=== PATIENT | male | born 1985 | race Caucasian/White ===

== ENCOUNTER 2020-07-02 15:47 | Emergency (ER) | payer SELFPAY ==
[2020-07-02] MEDS ORDERED: Sodium Chloride 0.9% 10 ML Syringe FLUSH PRN (15:55)
--- NOTE | 2020-07-02 18:29 | EDM.PDOC ---
ED HPI GENERAL MEDICAL PROBLEM - General Chief Complaint: General Stated Complaint: co poisoning Time Seen by Provider: 07/02/20 16:00 - History of Present Illness INITIAL COMMENTS - FREE TEXT/NARRATIVE: 34 year old male brought by ambulance due to CO poisoning The family was at fish home with propane heater on -they went to fish home at 9 o clock & one child awoke at one clock & start through up at one o clock -they continue to do fishing-In the morning ,he felt little dizzy & c/o headache -start through up-He tried to call the hospital but there were no signal -he was not able contact the hospital -he pull the family out - On the way ,he was in & out .He was c/o headache ,dull ache ,6/10 -non radiating denies fever ,chest pain ,cough ,wheezing or abd pain Onset: Today, Sudden Onset Date: 07/02/20 Onset Time: 14:35 Duration: Hour(s): (6) Quality: Reports: Sharp Severity: Severe Improves with: Reports: None Worsens with: Reports: None Associated Symptoms: Reports: Confusion, Syncope (patient was in & out during the way ) Social & Family History - Tobacco Use Tobacco Use Status *Q: Light Tobacco User ED ROS GENERAL - Review of Systems Review Of Systems: See Below Constitutional: Reports: Fatigue HEENT: Reports: Other (dizzines) Respiratory: Reports: Shortness of Breath, Wheezing, Cough, Sputum Cardiovascular: Reports: No Symptoms, Chest Pain, Lightheadedness GI/Abdominal: Reports: Nausea, Vomiting, Other Musculoskeletal: Reports: Muscle Stiffness Skin: Reports: No Symptoms Neurological: Reports: Confusion, Dizziness, Headache, Seizure, Syncope, Difficulty Walking Psychiatric: Reports: Confusion ED EXAM, GENERAL - Physical Exam Exam: See Below Exam Limited By: No Limitations General Appearance: WD/WN, No Apparent Distress, Anxious, Lethargic Nose: Normal Inspection Throat/Mouth: Other (ruth red lips ) Head: Atraumatic, Normocephalic Neck: Supple, Non-Tender, Full Range of Motion Respiratory/Chest: No Respiratory Distress, Lungs Clear, Normal Breath Sounds, No Accessory Muscle Use, Chest Non-Tender Cardiovascular: Normal Peripheral Pulses, Regular Rate, Rhythm, No Edema, No Gallop, No JVD, No Murmur, No Rub GI/Abdominal: Normal Bowel Sounds, Soft, Non-Tender, No Organomegaly, No Distention, No Abnormal Bruit, No Mass, Pelvis Stable Neurological: CN II-XII Intact (confused on arrival ) Course - Vital Signs Text/Narrative:: 34 year old male came with CO poisoning O2 started with nonrebreather mask at rate of 15/liter per minute I/v line established EKG done -that shows no acute ST or T wave changes CO level at the site was 27 % lab work ABG ,CBC ,CMP lactic acid .co level order ABG PH = 7.51 pO 293 cO28 lactic acid 1.5 After consulting [place] provider , decision is made to tranfer for hyperbaric therapy I [facility] with [facility] ,they do not have hyperbaric therapy . They give [facility] number -I spoke with dr lopez regarding the patient .He was ready to take him Patients vitals were stable before transfer Dispositions- transfer to [facility] by ambulance - Orders/Labs/Meds Orders: Active Orders 24 hr Category Date Time Status Peripheral IV Insertion Adult [OM.PC] Routine Oth 07/02/20 15:55 Ordered Labs: Laboratory Tests 07/02/20 07/02/20 07/02/20 Range/Units 15:58 16:15 16:15 WBC 10.2 (4.0-11.0) K/uL RBC 4.84 (4.50-6.50) M/uL Hgb 14.2 (13.0-18.0) g/dL Hct 41.0 (40.0-54.0) % MCV 85 (76-96) fL MCH 29.3 (27.0-32.0) pg MCHC 34.6 (31.0-35.0) g/dL RDW 13.2 (11.0-16.0) % Plt Count 206 (150-400) K/uL MPV 10.0 (6.0-10.0) fL Neut % (Auto) 84.5 H (45.0-70.0) % Lymph % (Auto) 9.1 L (20.0-40.0) % Cassia % (Auto) 5.3 (3.0-10.0) % Eos % (Auto) 0.9 L (1.0-5.0) % Baso % (Auto) 0.2 (0.0-0.5) % Neut # (Auto) 8.58 H (2.00-7.50) K/uL Lymph # (Auto) 0.92 L (1.50-4.00) K/uL Cassia # (Auto) 0.54 (0.20-0.80) K/uL Eos # (Auto) 0.09 (0.04-0.40) K/uL Baso # (Auto) 0.02 (0.02-0.10) K/uL ABG pH (7.35-7.45) ABG pCO2 (35-45) mmHg ABG pO2 (80-105) mmHg ABG HCO3 (22-26) mmol/L ABG O2 Saturation (95-98) % ABG Base Excess (-2-2) Tres Test POC Cap COHB HHb Janie > 35.0 H* (0.5-1.5) %COHb O2 Delivery Device Sodium 144 (136-145) mmol/L Potassium 3.8 (3.5-5.1) mmol/L Chloride 107 (98-107) mmol/L Carbon Dioxide 25.7 (21.0-32.0) mmol/L Anion Gap 15.1 H (5.0-15.0) mmol/L BUN 18 (8-26) mg/dL Creatinine 1.28 (0.70-1.30) mg/dL Est Cr Clr Drug Dosing TNP Estimated GFR (MDRD) > 60 (>60) MLS/MIN BUN/Creatinine Ratio 14.1 (6-25) Glucose 80 (74-100) mg/dL Lactic Acid (0.4-2.0) mmol/L Calcium 9.1 (8.5-10.1) mg/dL Total Bilirubin 0.6 (0.0-1.0) mg/dL AST 22 (15-37) U/L ALT 35 (12-78) U/L Alkaline Phosphatase 70 (46-116) U/L Total Protein 7.5 (6.4-8.2) g/dL Albumin 4.4 (3.4-5.0) g/dL Globulin 3.1 (2.2-4.2) g/dL Albumin/Globulin Ratio 1.4 (0.8-2.0) SARS-CoV-2 RNA (KRISTI) (NEGATIVE) 07/02/20 07/02/20 07/02/20 Range/Units 16:15 16:15 18:05 WBC (4.0-11.0) K/uL RBC (4.50-6.50) M/uL Hgb (13.0-18.0) g/dL Hct (40.0-54.0) % MCV (76-96) fL MCH (27.0-32.0) pg MCHC (31.0-35.0) g/dL RDW (11.0-16.0) % Plt Count (150-400) K/uL MPV (6.0-10.0) fL Neut % (Auto) (45.0-70.0) % Lymph % (Auto) (20.0-40.0) % Cassia % (Auto) (3.0-10.0) % Eos % (Auto) (1.0-5.0) % Baso % (Auto) (0.0-0.5) % Neut # (Auto) (2.00-7.50) K/uL Lymph # (Auto) (1.50-4.00) K/uL Cassia # (Auto) (0.20-0.80) K/uL Eos # (Auto) (0.04-0.40) K/uL Baso # (Auto) (0.02-0.10) K/uL ABG pH 7.51 H* (7.35-7.45) ABG pCO2 28.5 L (35-45) mmHg ABG pO2 293.9 H* (80-105) mmHg ABG HCO3 22.7 (22-26) mmol/L ABG O2 Saturation 99.9 H (95-98) % ABG Base Excess -0.4 (-2-2) Tres Test Positive POC Cap COHB HHb Janie (0.5-1.5) %COHb O2 Delivery Device Non rebr mask Sodium (136-145) mmol/L Potassium (3.5-5.1) mmol/L Chloride (98-107) mmol/L Carbon Dioxide (21.0-32.0) mmol/L Anion Gap (5.0-15.0) mmol/L BUN (8-26) mg/dL Creatinine (0.70-1.30) mg/dL Est Cr Clr Drug Dosing Estimated GFR (MDRD) (>60) MLS/MIN BUN/Creatinine Ratio (6-25) Glucose (74-100) mg/dL Lactic Acid 1.8 (0.4-2.0) mmol/L Calcium (8.5-10.1) mg/dL Total Bilirubin (0.0-1.0) mg/dL AST (15-37) U/L ALT (12-78) U/L Alkaline Phosphatase (46-116) U/L Total Protein (6.4-8.2) g/dL Albumin (3.4-5.0) g/dL Globulin (2.2-4.2) g/dL Albumin/Globulin Ratio (0.8-2.0) SARS-CoV-2 RNA (KRISTI) Negative (NEGATIVE) Meds: Medications Discontinued Medications Generic Name Dose Route Start Last Admin Trade Name Freq PRN Reason Stop Dose Admin Sodium Chloride 10 ml 07/02/20 15:55 Saline Flush FLUSH ASDIRECTED PRN Keep Vein Open Departure - Departure Time of Disposition: 19:00 Disposition: DC/Tfer to [facility] 02 Clinical Impression: Carbon monoxide poisoning Qualifiers: Encounter type: initial encounter - Discharge Information *PRESCRIPTION DRUG MONITORING PROGRAM REVIEWED*: No *COPY OF PRESCRIPTION DRUG MONITORING REPORT IN PATIENT LOPEZ: No Referrals: PCP,None [Primary Care Provider] - Sepsis Event Note (ED) - Evaluation Sepsis Screening Result: No Definite Risk - Problem List & Annotations (1) Carbon monoxide poisoning SNOMED Code(s): 13040079 Code(s): T58.91XA - TOXIC EFFECT OF CARB MONX FROM UNSP SOURCE, ACC, INIT Status: Acute Priority: Medium Onset Date: ~07/02/20 - My Orders Last 24 Hours: My Active Orders 07/02/20 15:55 Peripheral IV Insertion Adult [OM.PC] Routine - Assessment/Plan Last 24 Hours: My Active Orders 07/02/20 15:55 Peripheral IV Insertion Adult [OM.PC] Routine
== END 2020-07-02 18:55 ==
LOC: LB.ED 15:47
DX: T58.91XA Toxic effect of carbon monoxide from unspecified source, accidental (unintentional), initial encounter (principal); Z72.0 Tobacco use; Z20.822 Contact with and (suspected) exposure to COVID-19
CPT/HCPCS: 36415; 36600; 80053; 82803; 83605; 85025; 88740; 93005; 99285; 99285-25; A0425; A0429; U0002